=== PATIENT | female | born 1950 | race Caucasian/White ===

== ENCOUNTER 2018-10-05 08:38 | Outpatient (CLI) | payer BC ==
[~2018-10-05] VITALS: Ht 172.7 cm; Wt 102.2 kg
[2018-10-05] MEDS ORDERED: PANT40TA3 PO (08:59)
[2018-10-05] MEDS ORDERED: ASPI-992 PO (08:59)
[2018-10-05] MEDS ORDERED: OXYC-471 PO (08:59)
[2018-10-05] MEDS ORDERED: POLY17PO6 PO (09:00)
[2018-10-05 09:06] VITALS: BP 141/85
[2018-10-05 10:40] LABS: BASOPHILS % (AUTO) 0 % (0-10); EOSINOPHILS # (AUTO) 0.1 10^3/uL (0.0-0.3); EOSINOPHILS % (AUTO) 1 % (0-10); HEMATOCRIT 42 % (35-52); HEMOGLOBIN 13.8 G/DL (11.5-16.0); LYMPHOCYTES # (AUTO) 1.5 X 10^3 (1.0-4.0); LYMPHOCYTES % (AUTO) 23 % (12-44); MEAN CORPUSCULAR HEMOGLOBIN 30 PG (25-34); MEAN CORPUSCULAR HGB CONC 33 G/DL (32-36); MEAN CORPUSCULAR VOLUME 93 FL (80-99); MEAN PLATELET VOLUME 9.2 FL (7.4-10.4); MONOCYTES # (AUTO) 0.5 X 10^3 (0.0-1.0); MONOCYTES % (AUTO) 8 % (0-12); NEUTROPHILS # (AUTO) 4.7 X 10^3 (1.8-7.8); NEUTROPHILS % (AUTO) 69 % (42-75); PLATELET COUNT 322 10^3/uL (130-400); RED CELL DISTRIBUTION WIDTH 14.4 % (10.0-14.5); WHITE BLOOD COUNT 6.8 10^3/uL (4.3-11.0)
[2018-10-05 11:01] LABS: BUN/CREATININE RATIO 17; CALCIUM 9.7 MG/DL (8.5-10.1); CARBON DIOXIDE 24 MMOL/L (21-32); CHLORIDE 107 MMOL/L (98-107); CREATININE SERUM 0.75 MG/DL (0.60-1.30); GFR ESTIMATED > 60; GLUCOSE 83 MG/DL (70-105); POTASSIUM 4.2 MMOL/L (3.6-5.0); SODIUM 140 MMOL/L (135-145)
== END 2018-10-05 12:04 | disposition home or self-care (01) ==
LOC: PREOP 08:38
PROVIDERS: ATTEND Otolaryngology Otolaryngology/Facial Plastic Surgery
DX: Z01.818 Encounter for other preprocedural examination (principal); J34.2 Deviated nasal septum; J34.3 Hypertrophy of nasal turbinates
CPT/HCPCS: 36415; 80048; 85025; 87081; 93005

== ENCOUNTER 2018-10-12 06:15 | Day surgery (SDC) | payer BC ==
[~2018-10-12] VITALS: Ht 172.7 cm; Wt 102.2 kg
[2018-10-12] VITALS (13 sets, daily range): BP systolic 132–178; BP diastolic 76–96
[~2018-10-12 06:15] MED LIST: ASPI-992 PO; OXYC-471 PO; PANT40TA3 PO; POLY17PO6 PO
[2018-10-12] MEDS ORDERED: LACTATED RINGERS 1,000 ML IV PRN (06:20)
--- NOTE | 2018-10-12 06:55 | Progress Note-Pre Operative ---
Pre-Operative Progress Note H&P Reviewed The H&P was reviewed, patient examined and no changes noted. Date Seen by Provider: Oct 12, 2018 Time Seen by Provider: 06:30 Date H&P Reviewed: Oct 12, 2018 Time H&P Reviewed: 06:30 Pre-Operative Diagnosis: Deviated Nasal Septum, Bilat Hyper of Inf Turbs JUAN DANIEL WOODS MD Oct 12, 2018 06:55
[2018-10-12] MEDS ORDERED: COCAINE HCL 4% 2 ML SYR ONE (07:56)
[2018-10-12] MEDS ORDERED: PHENYLEPHRINE 0.5% NASAL SPR (NEO-SYNEPHRINE) REG ONE (07:56)
[2018-10-12] MEDS ORDERED: LIDOCAINE/EPI 1%-1:100,000 (XYLOCAINE) 20ML ONE (07:57)
[2018-10-12] MEDS ORDERED: DEXAMETHASONE 10 MG/ML (DECADRON) 1 ML VIAL ONE (08:08)
[2018-10-12] MEDS ORDERED: ONDANSETRON 4 MG/2 ML (SDV) Z0FRAN ONE (08:08)
[2018-10-12] MEDS ORDERED: ROCURONIUM 10 MG/ML 5 ML SYRINGE IV ONE (08:08)
[2018-10-12] MEDS ORDERED: LIDOCAINE PF 2% 5 ML (XYLOCAINE) VIAL ONE (08:08)
[2018-10-12] MEDS ORDERED: fentaNYL INJECTION 100 MCG/2 ML AMP ONE (08:08)
[2018-10-12] MEDS ORDERED: proPOfol 200 MG/20 ML (DIPRIVAN) VIAL IV ONE (08:08)
[2018-10-12] MEDS ORDERED: SEVOFLURANE (ULTANE) 15 ML INHAL SOLN ONE (08:08)
[2018-10-12] MEDS ORDERED: MIDAZOLAM 2 MG/2 ML (VERSED) VIAL ONE (08:10)
[2018-10-12] MEDS ORDERED: ACETAMINOPHEN 325 MG TABLET PO PRN (10:00)
[2018-10-12] MEDS ORDERED: D5 1/2 NS W/KCL 20 MEQ/L 1,000 ML IV SCH (10:00)
[2018-10-12] MEDS ORDERED: PROMETHAZINE INJ 25 MG/ML (PHENERGAN) AMP IVP PRN (10:00)
--- NOTE | 2018-10-12 10:00 | Progress Note-Post Operative ---
Post-Operative Progess Note Surgeon (s)/Power Driven Brush Maker (s) Surgeon JUAN DANIEL WOODS MD Power Driven Brush Maker n/a Pre-Operative Diagnosis Deviated Nasal Septum, Bilat Hyper of Inf Turbs Post-Operative Diagnosis same Post-Op Procedure Note Date of Procedure: Oct 12, 2018 Name of Procedure Performed: Nasal Septoplasty, Bialt Red of Inf Turbs Description & Findings Description and Findings: n/a Anesthesia Type get Estimated Blood Loss minimal Packing none. Specimen(s) collected/removed nasal septum JUAN DANIEL WOODS MD Oct 12, 2018 10:00
[2018-10-12] MEDS ORDERED: ONDANSETRON 4 MG/2 ML (SDV) Z0FRAN IVP PRN (10:15)
[2018-10-12] MEDS ORDERED: morphine INJ 10 MG/ML 1ML (SYR OR VIAL) IVP ONE (10:15)
[2018-10-12] MEDS ORDERED: HYDROmorphone 2 MG/ML VIAL (DILAUDID) IV ONE (10:15)
[2018-10-12] MEDS ORDERED: AMOX-355 PO (10:56)
[2018-10-12] MEDS ORDERED: TRAM50TA2 PO (10:56)
--- NOTE | 2018-10-12 14:17 | Anesthesia-General Post-Op ---
General Patient Condition Mental Status/LOC: Same as Preop Cardiovascular: Satisfactory Nausea/Vomiting: Absent Respiratory: Satisfactory Pain: Controlled Complications: Absent Post Op Complications Complications None Follow Up Care/Instructions Patient Instructions None needed. Anesthesia/Patient Condition Patient Condition Patient is doing well, no complaints, stable vital signs, no apparent adverse anesthesia problems. No complications reported per nursing. JULIA MESA CRNA Oct 12, 2018 14:17
== END 2018-10-12 13:25 | disposition home or self-care (01) ==
LOC: SDC 06:15
PROVIDERS: ATTEND Otolaryngology Otolaryngology/Facial Plastic Surgery
DX: J34.2 Deviated nasal septum (principal); J34.3 Hypertrophy of nasal turbinates; J34.89 Other specified disorders of nose and nasal sinuses; G47.33 Obstructive sleep apnea (adult) (pediatric); K21.9 Gastro-esophageal reflux disease without esophagitis; R51 Headache; E66.9 Obesity, unspecified; Z68.34 Body mass index [BMI] 34.0-34.9, adult; Z79.891 Long term (current) use of opiate analgesic; Z79.82 Long term (current) use of aspirin; Z88.1 Allergy status to other antibiotic agents; Z88.2 Allergy status to sulfonamides; Z88.8 Allergy status to other drugs, medicaments and biological substances; Z99.89 Dependence on other enabling machines and devices
CPT/HCPCS: 88300

== ENCOUNTER 2020-03-06 12:36 | Emergency (ER) | payer OTHER ==
[~2020-03-06] VITALS: Ht 172.7 cm; Wt 99.8 kg
[~2020-03-06 12:36] MED LIST changes: +AMOX-355 PO; -PANT40TA3 PO; +PANT40TA52 PO; +TRM50T PO
--- NOTE | 2020-03-06 13:05 | ED Lower Extremity ---
General Chief Complaint: Lower Extremity Stated Complaint: R HIP/BACK/CALF PAIN Nursing Triage Note: PT TO [facility] BY WHEELCHAIR WITH COMPLAINT OF RIGHT LEG PAIN AND SWELLING. STATES HAS BEEN ONGOING FOR TWO WEEKS. HAS SEEN PCP FOR SYMPTOMS AND HAD ULTRASOUND DONE. PT WAS SENT HERE FOR FURTHER WORKUP. Nursing Sepsis Screen: No Definite Risk Source: patient Exam Limitations: no limitations History of Present Illness Date Seen by Provider: Mar 06, 2020 Time Seen by Provider: 12:50 Initial Comments This is a 69 yo female who presented to ED with c/o right lower ext. swelling x2 weeks. Believes she had venous US yesterday at [place] and was told by her PCP to go to ER to have arterial US. States pain is worse at 10/10 when standing and walking. Improved with rest to a 5/10. Describes as sharp in nature and localized to her right leg. Denies trauma, fever, chills, cough, shortness of breath, chest pain, nausea/vomiting/diarrhea, abdominal pain. Denies numbness in her groin or difficulty with bowel/bladder elimination. Allergies and Home Medications Allergies Coded Allergies: diphenhydramine (Verified Allergy, Intermediate, COUGHING, 10/05/18) sulfamethoxazole (Verified Allergy, Intermediate, 10/12/18) UNKNOWN REACTION trimethoprim (Verified Allergy, Intermediate, 10/12/18) UNKNOWN REACTION Home Medications Amoxicillin/Potassium Clav 1 Each Tablet, 1 EACH PO BID Prescribed by: SIMONA SHEIKH on 10/12/18 1056 Pantoprazole Sodium 40 Mg Tablet.dr, 40 MG PO DAILY, (Reported) Tramadol HCl 50 Mg Tablet, 50 MG PO TID Prescribed by: SIMONA SHEIKH on 10/12/18 1056 Patient Home Medication List Home Medication List Reviewed: Yes Review of Systems Constitutional: no symptoms reported EENTM: no symptoms reported Respiratory: no symptoms reported Cardiovascular: see HPI Gastrointestinal: no symptoms reported Genitourinary: no symptoms reported Musculoskeletal: no symptoms reported Skin: no symptoms reported Psychiatric/Neurological: No Symptoms Reported Past Mcplfct-Wbirpj-Qolpet Hx Patient Social History Alcohol Use: Rarely Uses Recreational Drug Use: No Smoking Status: Never a Smoker 2nd Hand Smoke Exposure: No Recent Foreign Travel: No Contact w/Someone Who Travel: No Recent Infectious Disease Expo: No Recent Hopitalizations: No Immunizations Up To Date Tetanus Booster (TDap): Unknown PED Vaccines UTD: No Date of Influenza Vaccine: Dec 04, 2017 Seasonal Allergies Seasonal Allergies: Yes Past Medical History Surgeries: Yes (DX LAP-ENDOMETRIOSIS) Hysterectomy, Oophorectomy, Tubal Ligation Respiratory: Yes Sleep Apnea Currently Using CPAP: Yes (HASN'T BEEN ABLE TO USE R/T SINUS ISSUES) Cardiac: No Neurological: 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 Headaches /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 Sexually Transmitted Disease: No HIV/AIDS: No Genitourinary: No Gastroesophageal Reflux, Chronic Constipation, Diverticulosis Musculoskeletal: Yes Degenerate Disk Disease, Arthritis, Chronic Back Pain Endocrine: Yes (NOT ON MEDS) Hypothyroidsim HEENT: Yes (GLASSES) Loss of Vision: Denies Hearing Impairment: Denies Cancer: No Psychosocial: No Integumentary: Yes Eczema Blood Disorders: No Adverse Reaction/Blood Tranf: No (N/A) Physical Exam Vital Signs Vital Signs - First Documented 03/06/20 12:42 Pulse 98 Resp 20 B/P (MAP) 148/84 (105) Pulse Ox 96 O2 Delivery Room Air Capillary Refill : Less Than 3 Seconds Height, Weight, BMI Height: 5'8.00" Weight: 225lbs. 4.0oz. 102.901448oq; 33.00 BMI Method: General Appearance: WD/WN, no apparent distress HEENT: PERRL/EOMI, pharynx normal Neck: full range of motion, normal inspection Cardiovascular: regular rate, rhythm, no edema, no murmur Respiratory: chest non-tender, lungs clear, normal breath sounds, no respiratory distress Gastrointestinal: normal bowel sounds, non tender, soft Back: normal inspection Hips: right hip pain Legs: right leg pain, right leg other (Homans sign +) Knees: right knee pain Neurologic/Tendon: normal sensation, normal motor functions, normal tendon functions Neurologic/Psychiatric: no motor/sensory deficits, alert, normal mood/affect, oriented x 3 Skin: normal color, warm/dry Progress/Results/Core Measures Results/Orders Lab Results Laboratory Tests Test 03/06/20 16:00 Range/Units Urine Color YELLOW Urine Clarity SL CLOUDY Urine pH 5.5 5-9 Urine Specific [place] 1.025 H 1.016-1.022 Urine Protein 1+ H NEGATIVE Urine Glucose (UA) NEGATIVE NEGATIVE Urine Ketones TRACE H NEGATIVE Urine Nitrite NEGATIVE NEGATIVE Urine Bilirubin 1+ H NEGATIVE Urine Urobilinogen 1.0 < = 1.0 MG/DL Urine Leukocyte Esterase NEGATIVE NEGATIVE Urine RBC (Auto) 1+ H NEGATIVE Urine RBC RARE /HPF Urine WBC 2-5 /HPF Urine Squamous Epithelial Cells 5-10 /HPF Urine Crystals NONE /LPF Urine Bacteria TRACE /HPF Urine Casts NONE /LPF Urine Mucus NEGATIVE /LPF Urine Culture Indicated NO My Orders Orders - DEENA RANDHAWA CHILDCARE ATTENDANT Ua Culture If Indicated (03/06/20 12:56) Us Right Low Ext [id number] (03/06/20 13:27) Us Venous Lower Ext Rt (03/06/20 13:28) Fentanyl Injection (Sublimaze Injection (03/06/20 13:45) Lumbar Spine - 2-3 Views (03/06/20 14:51) Pelvis/Giorgio Hips 3-4 Views (03/06/20 14:51) Ketorolac Injection (Toradol Injection) (03/06/20 15:45) Orphenadrine Inj (Ed Only) (Norflex Inje (03/06/20 15:45) Medications Given in ED Vital Signs/I&O 03/06/20 03/06/20 12:42 18:15 Pulse 98 86 Resp 20 20 B/P (MAP) 148/84 (105) 135/80 Pulse Ox 96 97 O2 Delivery Room Air Room Air Blood Pressure Mean: 105 Progress Progress Note : Progress Note Pt examined, in no acute distress. States she is unable to recall exactly what test she had done. Attempted to call here primary care office for records/report of prior exams. Was unable to make contact as office is close Monday afternoons. Orders placed for venous/arterial US and labs. Fentanyl 50mcg ordered for pain. 1452: US neg for DVT and unremarkable arterial study. Orders placed for x-ray lumbar spine, pelvis and hips to assess for fractures. 1537: Orders placed for Norflex 60mg and Toradol 30mg IV for pain 7/10. Resting in bed, still pending lab draw. She refused to have lab or staff attempt to obtain blood for lab draw d/t difficulty with obtaining. Reported improvement of symptoms with Norflex and Toradol. No evidence of DVT or arterial insufficiency. No fractures seen on x- rays of pelvis, hips, or lumbar spine. Unable to obtain blood to evaluate signs infection or electrolyte imbalance. Reviewed all findings of US and x-rays with her, and discussed having her follow up with her PCP for persistent problems. Reviewed discharge plan and she is agreeable with plan. Diagnostic Imaging Diagonstic Imaging: Ultrasound Comments NAME: GENIA RODRIGEZ MED REC#: [id number] PT STATUS: REG ER : 1950 PHYSICIAN: DEENA RANDHAWA APRN ADMIT DATE: 03/06/20/ER Signed Date of Exam:03/06/20 US RIGHT LOW EXT [id number] Indication: Right leg pain. Grayscale, color-flow and duplex Doppler evaluation of the right lower extremity arterial system was performed. Triphasic waveforms throughout the right lower extremity arterial system are noted. Velocities appear to be normal. No high-grade stenosis or occlusion is identified. Impression: Unremarkable right lower extremity arterial Doppler. Dictated by: Dictated on workstation # [id number] Dict: 03/06/20 1514 Trans: 03/06/20 1543 [facility]B [id number] Interpreted by: FRANCISCO NICHOLSON MD Electronically signed by: FRANCISCO NICHOLSON MD 03/06/20 1543 Diagonstic Imaging: Ultrasound Comments NAME: GENIA RODRIGEZ MED REC#: [id number] PT STATUS: REG ER : 1950 PHYSICIAN: DEENA RANHDAWA APRN ADMIT DATE: 03/06/20/ER Signed Date of Exam:03/06/20 US VENOUS LOWER EXT RT PROCEDURE: US right lower extremity venous. TECHNIQUE: Multiple real-time grayscale images were obtained over the right lower extremity in various projections. Additional spectral analysis and color Doppler duplex images were also obtained. INDICATION: Right hip and back pain. Patient also has right lower extremity swelling. FINDINGS: There is no evidence of right lower extremity DVT. Right lower extremity deep venous system shows normal compressibility with normal response to augmentation and Valsalva. No fluid collection or mass is detected. IMPRESSION: No evidence for right lower extremity DVT. Dictated by: Dictated on workstation # [id number] Dict: 03/06/20 1513 Trans: 03/06/20 1543 IMS [id number] Interpreted by: FRANCISCO NICHOLSON MD Electronically signed by: FRANCISCO NICHOLSON MD 03/06/20 1543 Diagonstic Imaging: Xray Comments NAME: GENIA RODRIGEZ MED REC#: [id number] PT STATUS: REG ER : 1950 PHYSICIAN: DEENA RANDHAWA APRN ADMIT DATE: 03/06/20/ER Signed Date of Exam:03/06/20 LUMBAR SPINE - 2-3 VIEWS INDICATION: Low back pain. TIME OF EXAM: 3:18 p.m. Three views of the lumbar spine were obtained. There is some straightening of the normal lumbar lordotic curvature. Vertebral body heights are maintained. No acute compression fracture is seen. There is generalized degenerative disc disease with variable disc space narrowing and marginal spurring. Lower lumbar facet arthropathy is noted. IMPRESSION: Lumbar spondylosis. No acute bony abnormality is detected. Dictated by: Dictated on workstation # [id number] Dict: 03/06/20 1528 Trans: 03/06/20 1543 [facility] [id number] Interpreted by: FRANCISCO NICHOLSON MD Electronically signed by: FRANCISCO NICHOLSON MD 03/06/20 1543 Comments NAME: GENIA RODRIGEZ MED REC#: [id number] PT STATUS: REG ER : 1950 PHYSICIAN: DEENA RANDHAWA APRN ADMIT DATE: 03/06/20/ER Signed Date of Exam:03/06/20 PELVIS/GIORGIO HIPS 3-4 VIEWS INDICATION: Right leg pain and low back pain. TIME OF EXAM: 03:20 p.m. EXAMINATION: AP view of the pelvis and a single view of each hip was obtained. FINDINGS: Femoroacetabular alignment is normal bilaterally. Both femoral heads and necks are intact. No fractures are seen. Rami appear to be intact. IMPRESSION: No acute bony abnormality is detected. Dictated by: Dictated on workstation # [id number] Dict: 03/06/20 1527 Trans: 03/06/20 1543 [facility] [id number] Interpreted by: FRANCISCO NICHOLSON MD Electronically signed by: FRANCISCO NICHOLSON MD 03/06/20 1543 Departure Impression Primary Impression: Right leg swelling Additional Impression: Pain in right leg Disposition: 01 HOME, SELF-CARE Condition: Improved Departure-Patient Inst. Decision time for Depature: 16:55 Referrals: NO,LOCAL PHYSICIAN (PCP) Primary Care Physician LAKESHA DEL ANGEL APRN (Family) Primary Care Physician Patient Instructions: Acute Pain, Adult Add. Discharge Instructions: Plan: 1. Discharge home. 2. May take Tylenol or Ibuprofen as needed for pain per package instructions. 3. Follow up with your primary care provider if your symptoms persist. 4. Return for any new or concerning symptoms. All discharge instructions reviewed with patient and/or family. Voiced understanding. DEENA RANDHAWA CHILDCARE ATTENDANT Mar 06, 2020 13:04
[2020-03-06] MEDS ORDERED: fentaNYL INJECTION 100 MCG/2 ML AMP IVP ONE (13:45)
--- NOTE | 2020-03-06 15:15 | Diagnostic Imaging Report ---
PROCEDURE: US right lower extremity venous. TECHNIQUE: Multiple real-time grayscale images were obtained over the right lower extremity in various projections. Additional spectral analysis and color Doppler duplex images were also obtained. INDICATION: Right hip and back pain. Patient also has right lower extremity swelling. FINDINGS: There is no evidence of right lower extremity DVT. Right lower extremity deep venous system shows normal compressibility with normal response to augmentation and Valsalva. No fluid collection or mass is detected. IMPRESSION: No evidence for right lower extremity DVT. Dictated by: Dictated on workstation # [id number]
--- NOTE | 2020-03-06 15:16 | Diagnostic Imaging Report ---
Indication: Right leg pain. Grayscale, color-flow and duplex Doppler evaluation of the right lower extremity arterial system was performed. Triphasic waveforms throughout the right lower extremity arterial system are noted. Velocities appear to be normal. No high-grade stenosis or occlusion is identified. Impression: Unremarkable right lower extremity arterial Doppler. Dictated by: Dictated on workstation # [id number]
--- NOTE | 2020-03-06 15:30 | Diagnostic Imaging Report ---
INDICATION: Right leg pain and low back pain. TIME OF EXAM: 03:20 p.m. EXAMINATION: AP view of the pelvis and a single view of each hip was obtained. FINDINGS: Femoroacetabular alignment is normal bilaterally. Both femoral heads and necks are intact. No fractures are seen. Rami appear to be intact. IMPRESSION: No acute bony abnormality is detected. Dictated by: Dictated on workstation # [id number]
--- NOTE | 2020-03-06 15:31 | Diagnostic Imaging Report ---
INDICATION: Low back pain. TIME OF EXAM: 3:18 p.m. Three views of the lumbar spine were obtained. There is some straightening of the normal lumbar lordotic curvature. Vertebral body heights are maintained. No acute compression fracture is seen. There is generalized degenerative disc disease with variable disc space narrowing and marginal spurring. Lower lumbar facet arthropathy is noted. IMPRESSION: Lumbar spondylosis. No acute bony abnormality is detected. Dictated by: Dictated on workstation # [id number]
[2020-03-06] MEDS ORDERED: ORPHENADRINE 60 MG/2 ML (NORFLEX) AMP (ED ONLY) IM ONE (15:45)
[2020-03-06] MEDS ORDERED: KETOROLAC 30 MG/ML VIAL IVP ONE (15:45)
[2020-03-06 16:06] LABS: CLARITY,URINE SL CLOUDY; COLOR,URINE YELLOW; GLUCOSE, URINE (UA) NEGATIVE (NEGATIVE); KETONES,URINE TRACE (NEGATIVE); LEUKOCYTE ESTERASE ,URINE NEGATIVE (NEGATIVE); NITRITE,URINE NEGATIVE (NEGATIVE); PH,URINE 5.5 (5-9); PROTEIN,URINE 1+ (NEGATIVE)
[2020-03-06 16:25] LABS: BACTERIA,URINE TRACE /HPF; BILIRUBIN,URINE 1+ (NEGATIVE); RBC,URINE RARE /HPF
[2020-03-06] MEDS ORDERED: TIZA2TAB7 PO (16:59)
[2020-03-06 18:15] VITALS: BP 135/80
== END 2020-03-06 18:15 | disposition home or self-care (01) ==
LOC: EDUNIT# 12:36 → ER 12:39
DX: M79.661 Pain in right lower leg (principal); M79.89 Other specified soft tissue disorders; K21.9 Gastro-esophageal reflux disease without esophagitis; G89.29 Other chronic pain; Z88.2 Allergy status to sulfonamides; Z88.1 Allergy status to other antibiotic agents; Z88.8 Allergy status to other drugs, medicaments and biological substances; Z79.891 Long term (current) use of opiate analgesic
CPT/HCPCS: 72100; 73522; 81000; 93926